=== PATIENT | female | born 1995 | race Caucasian/White ===

== ENCOUNTER 2020-05-30 08:19 | Inpatient (IN) | payer BC, SELFPAY ==
--- NOTE | 2020-05-30 08:38 | ED_ITS ---
HPI - Psych General Chief Complaint: Psychiatric Symptoms Stated Complaint: crisis Time Seen by Provider: 05/30/20 10:11 Source: patient Mode of arrival: ambulatory Limitations: no limitations History of Present Illness HPI Narrative: patient presents to the ED because she is afraid to be alone. Patient states she feels like she is not in reality. Patient states having auditory and visual hallucinations. Patient states earlier she was afraid she might hurt others and herself because he is unaware to separate what is real. Patient states presently she denies any suicidal homicidal ideation. Patient states she does not believe her medication is working. Patient denies any physical complaints. Patient states she is not eating or sleeping and feels depressed. Related Data Home Medications Medication Instructions Recorded Confirmed dextroamphetamine-amphetamine 1 cap PO QAM 05/30/20 05/30/20 lithium carbonate 1 tab PO BID 05/30/20 05/30/20 norgestimate-ethinyl estradiol 1 tab PO DAILY 05/30/20 05/30/20 [Estarylla] Allergies Allergy/AdvReac Type Severity Reaction Status Date / Time No Known Allergies Allergy Unverified 04/19/20 19:23 [No Known Allergies*] Review of Systems Review of Systems: Yes all other systems are reviewed and are negative Constitutional: Constitutional: Reports as per HPI and Reports no additional constitutional complaints Eyes: Eyes: Reports as per HPI, Reports no additional eye complaints, Denies blind spots, Denies blurry vision, Denies exophthalmos, Denies change in vision, Denies decreased night vision, Denies eye discharge, Denies dry eyes, Denies floaters and Denies irritation ENT: Reports system reviewed and no additional complaints, except as documented, Reports as per HPI and Denies dysphagia Cardiovascular: Cardiovascular: Reports as per HPI, Reports no additional cardiovascular complaints, Denies chest pain, Denies chest pain at rest, Denies chest pain with activity, Denies Epigastric Pain, Denies dyspnea on exertion, Denies orthopnea and Denies paroxysmal nocturnal dyspnea Respiratory: Respiratory: Reports as per HPI, Reports no additional respiratory complaints, Denies no additional respiratory complaints, Denies change in phlegm color, Denies chest congestion, Denies cough, Denies hemoptysis, Denies excessive phlegm production, Denies pain on inspiration, Denies pain with cough and Denies dyspnea on exertion Gastrointestinal: Gastrointestinal: Reports as per HPI, Reports no additional gastrointestinal complaints, Denies abdominal pain, Denies belching, Denies melena, Denies bloating, Denies hematochezia, Denies tenesmus, Denies change in stool character, Denies coffee ground emesis, Denies constipation, Denies GI cramping, Denies dysphagia, Denies early satiety, Denies dyspepsia, Denies heartburn, Denies fecal incontinence, Denies diarrhea and Denies hematemesis Genitourinary: Genitourinary: Reports no additional female genitourinary complaints, Reports as per HPI, Denies abnormal menses, Denies abnormal vaginal bleeding, Denies dysmenorrhea, Denies dysuria, Denies pelvic pain, Denies urinary incontinence, Denies urinary hesitancy and Denies urinary urgency Musculoskeletal: Musculoskeletal: Reports no additional musculoskeletal complaints Neurologic: Reports system reviewed and no additional complaints, except as documented and Reports as per HPI Psychiatric: Psychiatric: Reports abnormal sleep pattern, Reports anxiety, Reports anhedonia, Reports paranoia, Reports homicidal ideation and Reports suicidal ideation [facility] Past Medical History Medical History (Updated 05/30/20 @ 17:50 by ANIA Rivera) No known health problems Social History Social History Alcohol intake: current Alcohol intake frequency: other Alcohol type: beer Smoking Status: Current every day smoker Smoked in Last 30 Days: Yes Use of substances other than those prescribed or required for medical reasons: Yes Substance Use Type: Marijuana Substance Use Frequency: Daily Last Used Substance: Hours (ago) Any prior treatment program specific to substance use: No Advance Directives: Yes Advance Directives Information Provided: No Advance Directives on File: No Physical Exam Vital Signs: Vital Signs: Vital Signs Temp Pulse Resp BP Pulse Ox 05/30/20 16:27 98.1 F 98 20 145/95 H 100 05/30/20 08:42 97.1 F 80 19 156/99 H 99 05/30/20 08:39 97.1 F 80 19 156/99 H 99 Body Mass Index 29.0 Const: General: cooperative, healthy appearing, comfortable, no acute di stress, well developed and anxious Orientation/consciousness: patient los ented x3 HENMT: Head: Yes normal to inspection Ears: hearing grossly normal bilaterally, external ears normal and TM's normal bilaterally General nose exam: Normal external nose present Eyes: General: appearance normal, both eyes and all related structures Neck: Neck: Yes normal visual inspection, Yes full ROM, Yes no lymphadenopathy and Yes no meningeal signs Chest: Chest palpation & inspection: normal inspection of the chest, normal palpation of entire chest wall and no localized rib tenderness Resp: Effort & Inspection: normal respiratory effort, able to speak in complete sentences, normal respiratory pattern, no audible wheezes, no cough, respiratory effort not decreased, no grunting, not labored, no nasal flaring, no paradoxical thoraco-abdom movements, no pursed lip breathing, no respiratory distress, no retractions, no segmental paradox chest wall movement, no stridor, not tachypneic, no tracheal deviation and no tripod positioning Auscultation: clear to auscultation bilaterally Percussion: percussion normal Cardio: Jugular venous distension: no JVD Heart sounds: S1 normal heart sound present and S2 normal heart sound present GI: Inspection: Yes normal to inspection, No abdominal wall ecchymosis, No Abdominal wall edema and No distended Percussion: Yes normal to percussion Auscultation: normal bowel sounds : General: No CVA tenderness and Yes no CVA tenderness Back/Spine/Pelvis: Back: no CVA tenderness, No CVA tenderness and No back tenderness Skin: General skin exam: no rashes or lesions noted Neuro: General: patient oriented x3, gait normal, no meningeal signs and CN's II-XI intact bilaterally Cranial nerves: Yes CN's II-XII intact bilaterally Extrem: General: Yes normal to inspection and Yes full ROM Psych: Other: Patient seems depressed, and anxious. . Patient presently is alert oriented x3. Patient presently denies any suicidal ideation. Patient admits to having intermittent hallucinations. Appearance: grossly normal and well kempt Thought content: Hallucination(s) present Course Course Course Narrative: Patient will have basic labs and a psych evaluation. Reevaluation(s) Reevaluation #1: patient labs are normal. Patient seen by care team recommends admission for patient. Patient presently is a bed search. Time: 13:20 Reevaluation #2: patient is going to . Time: 17:49 MDM - Psych MDM Narrative Medical decision making narrative: Manic. Bipolar Restraints Face to Face Assessment: Face to Face Assessment: Current Situation: After assessment of the patient, a review of the pertinent medical record and a discussion with nursing staff, I feel the patient requires a restrain intervention. Reaction To: [] Medical Condition: [] Behavioral State: [] Continued Need: [] Lab Data Result diagrams: 05/30/20 09:17 05/30/20 09:17 Labs: Lab Results 05/30/20 05/30/20 05/30/20 Range/Units 09:17 09:17 09:17 WBC 7.0 (4.8-10.8) X10*3/uL RBC 3.92 L (4.20-5.50) X10*6/uL Hgb 11.5 L (12.0-16.0) g/dl Hct 36.2 L (37-47) % MCV 92.3 (80-98) fL MCH 29.3 (27.0-33.0) pg MCHC 31.8 (31.0-35.0) g/dl RDW 13.0 (11.0-16.0) % Plt Count 218 (160-400) X10*3/uL MPV 10.6 (9.4-12.3) fL Immature Gran % (Auto) 0.4 (0.0-0.4) % Neut % (Auto) 67.8 (45-73) % Lymph % (Auto) 21.8 (20-40) % [place] % (Auto) 7.3 (2-11) % Eos % (Auto) 2.3 (0-4) % Baso % (Auto) 0.4 (0-2) % Lymph # (Auto) 1.5 (1.2-4.9) X10*3/uL [place] # (Auto) 0.5 (0.1-1.2) X10*3/uL Eos # (Auto) 0.2 (0.0-0.4) X10*3/uL Baso # (Auto) 0.0 (0.0-0.2) X10*3/uL Abs Immat Gran (auto) 0.03 (0.00-0.03) X10*3/uL Absolute Neuts (auto) 4.8 (2.0-8.3) X10*3/uL Absolute Nucleated RBC 0.000 (0.0-0.012) X10*3/uL Nucleated RBC % (auto) 0.0 (0.0-0.2) /100WBC Sodium 139 (135-145) mmol/L Potassium 4.3 (3.3-5.1) mmol/l Chloride 103 (96-108) mmol/L Carbon Dioxide 29 (22-29) mmol/L Anion Gap 11 L (12-20) BUN 18 H (9-16) mg/dL Creatinine 0.81 (0.5-1.4) mg/dL Estim Creat Clear Calc 115.3 Estimated GFR > 60 Random Glucose 111 (60-115) mg/dL Calcium 9.2 (8.4-10.2) mg/dL Total Bilirubin 0.8 (0.0-1.0) mg/dL Direct Bilirubin 0.3 (0.0-0.5) mg/dL AST 19 (5-31) U/L ALT 15 (0-31) U/L Alkaline Phosphatase 66 (39-117) U/L Total Protein 7.1 (6.5-8.0) g/dL Albumin 4.1 (3.5-5.0) g/dL Urine Color Urine Appearance Urine pH (5.0-8.0) Ur Specific [place] (1.005-1.025) Urine Protein (NEG-TRACE) MG/DL Urine Glucose (UA) (NEG) MG/DL Urine Ketones (NEG) MG/DL Urine Blood (NEG) Urine Nitrite (NEG) Ur Leukocyte Esterase (NEG) Urine RBC (0) /HPF Urine WBC (0-4) /HPF Ur Squamous Epith Cells /LPF Urine Bacteria /LPF Urine Test (NEGATIVE) Urine Opiates Screen (Not Detect) Ur Barbiturates Screen (Not Detect) Ur Phencyclidine Scrn (Not Detect) Ur Amphetamines Screen (Not Detect) U Benzodiazepines Scrn (Not Detect) [place] (0.60-1.20) mmol/L Urine Cocaine Screen (Not Detect) U Marijuana (THC) Screen (Not Detect) Ethyl Alcohol < 10 mg/dL Coronavirus (PCR) (Negative) COVID-19 PCR 05/30/20 05/30/20 05/30/20 Range/Units 09:17 09:17 09:33 WBC (4.8-10.8) X10*3/uL RBC (4.20-5.50) X10*6/uL Hgb (12.0-16.0) g/dl Hct (37-47) % MCV (80-98) fL MCH (27.0-33.0) pg MCHC (31.0-35.0) g/dl RDW (11.0-16.0) % Plt Count (160-400) X10*3/uL MPV (9.4-12.3) fL Immature Gran % (Auto) (0.0-0.4) % Neut % (Auto) (45-73) % Lymph % (Auto) (20-40) % [place] % (Auto) (2-11) % Eos % (Auto) (0-4) % Baso % (Auto) (0-2) % Lymph # (Auto) (1.2-4.9) X10*3/uL [place] # (Auto) (0.1-1.2) X10*3/uL Eos # (Auto) (0.0-0.4) X10*3/uL Baso # (Auto) (0.0-0.2) X10*3/uL Abs Immat Gran (auto) (0.00-0.03) X10*3/uL Absolute Neuts (auto) (2.0-8.3) X10*3/uL Absolute Nucleated RBC (0.0-0.012) X10*3/uL Nucleated RBC % (auto) (0.0-0.2) /100WBC Sodium (135-145) mmol/L Potassium (3.3-5.1) mmol/l Chloride (96-108) mmol/L Carbon Dioxide (22-29) mmol/L Anion Gap (12-20) BUN (9-16) mg/dL Creatinine (0.5-1.4) mg/dL Estim Creat Clear Calc Estimated GFR Random Glucose (60-115) mg/dL Calcium (8.4-10.2) mg/dL Total Bilirubin Cancelled (0.0-1.0) mg/dL Direct Bilirubin Cancelled (0.0-0.5) mg/dL AST Cancelled (5-31) U/L ALT Cancelled (0-31) U/L Alkaline Phosphatase Cancelled (39-117) U/L Total Protein Cancelled (6.5-8.0) g/dL Albumin Cancelled (3.5-5.0) g/dL Urine Color Urine Appearance Urine pH (5.0-8.0) Ur Specific [place] (1.005-1.025) Urine Protein (NEG-TRACE) MG/DL Urine Glucose (UA) (NEG) MG/DL Urine Ketones (NEG) MG/DL Urine Blood (NEG) Urine Nitrite (NEG) Ur Leukocyte Esterase (NEG) Urine RBC (0) /HPF Urine WBC (0-4) /HPF Ur Squamous Epith Cells /LPF Urine Bacteria /LPF Urine Test (NEGATIVE) Urine Opiates Screen Not Detected (Not Detect) Ur Barbiturates Screen Not Detected (Not Detect) Ur Phencyclidine Scrn Not Detected (Not Detect) Ur Amphetamines Screen Not Detected (Not Detect) U Benzodiazepines Scrn Not Detected (Not Detect) [place] 0.32 L (0.60-1.20) mmol/L Urine Cocaine Screen Not Detected (Not Detect) U Marijuana (THC) Screen Not Detected (Not Detect) Ethyl Alcohol mg/dL Coronavirus (PCR) (Negative) COVID-19 PCR 05/30/20 05/30/20 Range/Units 09:33 14:55 WBC (4.8-10.8) X10*3/uL RBC (4.20-5.50) X10*6/uL Hgb (12.0-16.0) g/dl Hct (37-47) % MCV (80-98) fL MCH (27.0-33.0) pg MCHC (31.0-35.0) g/dl RDW (11.0-16.0) % Plt Count (160-400) X10*3/uL MPV (9.4-12.3) fL Immature Gran % (Auto) (0.0-0.4) % Neut % (Auto) (45-73) % Lymph % (Auto) (20-40) % [place] % (Auto) (2-11) % Eos % (Auto) (0-4) % Baso % (Auto) (0-2) % Lymph # (Auto) (1.2-4.9) X10*3/uL [place] # (Auto) (0.1-1.2) X10*3/uL Eos # (Auto) (0.0-0.4) X10*3/uL Baso # (Auto) (0.0-0.2) X10*3/uL Abs Immat Gran (auto) (0.00-0.03) X10*3/uL Absolute Neuts (auto) (2.0-8.3) X10*3/uL Absolute Nucleated RBC (0.0-0.012) X10*3/uL Nucleated RBC % (auto) (0.0-0.2) /100WBC Sodium (135-145) mmol/L Potassium (3.3-5.1) mmol/l Chloride (96-108) mmol/L Carbon Dioxide (22-29) mmol/L Anion Gap (12-20) BUN (9-16) mg/dL Creatinine (0.5-1.4) mg/dL Estim Creat Clear Calc Estimated GFR Random Glucose (60-115) mg/dL Calcium (8.4-10.2) mg/dL Total Bilirubin (0.0-1.0) mg/dL Direct Bilirubin (0.0-0.5) mg/dL AST (5-31) U/L ALT (0-31) U/L Alkaline Phosphatase (39-117) U/L Total Protein (6.5-8.0) g/dL Albumin (3.5-5.0) g/dL Urine Color YELLOW Urine Appearance HAZY Urine pH 6.0 (5.0-8.0) Ur Specific [place] 1.015 (1.005-1.025) Urine Protein NEG (NEG-TRACE) MG/DL Urine Glucose (UA) NEG (NEG) MG/DL Urine Ketones NEG (NEG) MG/DL Urine Blood TRACE (NEG) Urine Nitrite NEG (NEG) Ur Leukocyte Esterase NEG (NEG) Urine RBC 0-2 (0) /HPF Urine WBC 1-4 (0-4) /HPF Ur Squamous Epith Cells 2+ /LPF Urine Bacteria 1+ /LPF Urine Test NEGATIVE (NEGATIVE) Urine Opiates Screen (Not Detect) Ur Barbiturates Screen (Not Detect) Ur Phencyclidine Scrn (Not Detect) Ur Amphetamines Screen (Not Detect) U Benzodiazepines Scrn (Not Detect) [place] (0.60-1.20) mmol/L Urine Cocaine Screen (Not Detect) U Marijuana (THC) Screen (Not Detect) Ethyl Alcohol mg/dL Coronavirus (PCR) POSITIVE A (Negative) COVID-19 PCR Cancelled Discharge Plan Discharge Clinical Impression: Bipolar disorder Patient Disposition: Admitted As Inpatient
[2020-05-30 08:39] VITALS: BP 156/99; PULSE 80; RESP 19; TEMP 36.2; O2SAT 99; BMI 29.0
[2020-05-30 08:42] VITALS: BP 156/99; PULSE 80; RESP 19; TEMP 36.2; O2SAT 99
[2020-05-30 09:31] LABS: MANUAL DIFF FLAG NO
[2020-05-30 09:36] LABS: Basophils Percent Auto 0.4 % (0-2); Eosinophils Absolute Auto 0.2 X10*3/uL (0.0-0.4); Eosinophils Percent Auto 2.3 % (0-4); Hematocrit 36.2 % (37-47); Hemoglobin 11.5 g/dl (12.0-16.0); Imm Gran Abs Auto 0.03 X10*3/uL (0.00-0.03); Imm Gran Pct Auto 0.4 % (0.0-0.4); Lymphocytes Absolute Auto 1.5 X10*3/uL (1.2-4.9); Lymphocytes Percent Auto 21.8 % (20-40); Mean Corpuscular HGB Conc 31.8 g/dl (31.0-35.0); Mean Corpuscular Hemoglobin 29.3 pg (27.0-33.0); Mean Corpuscular Volume 92.3 fL (80-98); Mean Platelet Volume 10.6 fL (9.4-12.3); Monocytes Absolute Auto 0.5 X10*3/uL (0.1-1.2); Monocytes Percent Auto 7.3 % (2-11); Neutrophils Absolute Auto 4.8 X10*3/uL (2.0-8.3); Neutrophils Percent Auto 67.8 % (45-73); Platelet Count 218 X10*3/uL (160-400); Red Blood Count 3.92 X10*6/uL (4.20-5.50)
[2020-05-30 09:47] LABS: Glucose Urine UA NEG (NEG); Leukocyte Esterase Urine NEG (NEG); Nitrite Urine NEG (NEG); Specific Gravity - Urine 1.015 (1.005-1.025); Urine Blood TRACE (NEG); Urine Ketones NEG (NEG); Urine Protein NEG (NEG-TRACE)
[2020-05-30 09:48] LABS: Appearance Urine HAZY; Color Urine YELLOW
[2020-05-30 09:50] LABS: UPreg QC Valid YES; Urine Pregnancy NEGATIVE (NEGATIVE)
[2020-05-30 09:56] LABS: Lithium 0.32 mmol/L (0.60-1.20)
[2020-05-30 09:57] LABS: Bacteria Urine 1+ /LPF; RBC Urine 0-2 /HPF (0); Squamous Epithelial Cell Urine 2+ /LPF
[2020-05-30 10:00] LABS: Ethanol < 10 mg/dL
[2020-05-30 10:08] LABS: Alanine Aminotransferase 15 U/L (0-31); Albumin Level 4.1 g/dL (3.5-5.0); Alkaline Phosphatase 66 U/L (39-117); Anion Gap 11 (12-20); Aspartate Amino Transferase 19 U/L (5-31); Bilirubin Direct 0.3 mg/dL (0.0-0.5); Bilirubin Total 0.8 mg/dL (0.0-1.0); Blood Urea Nitrogen 18 mg/dL (9-16); Calcium 9.2 mg/dL (8.4-10.2); Carbon Dioxide 29 mmol/L (22-29); Chloride 103 mmol/L (96-108); Creatinine Clr Calc Pharmacy 115.3; Estimated Glomerular Filt Rate > 60; Glucose Random 111 mg/dL (60-115); Potassium 4.3 mmol/l (3.3-5.1); Sodium 139 mmol/L (135-145); Total Protein 7.1 g/dL (6.5-8.0)
[2020-05-30 10:19] LABS: Amphetamine Screen Urine Not Detected (Not Detect); Barbiturates, Urine Not Detected (Not Detect); Benzodiazepines Screen Urine Not Detected (Not Detect); Cannabinoid Screen Urine Not Detected (Not Detect); Cocaine Screen Urine Not Detected (Not Detect); Opiate Screen Urine Not Detected (Not Detect); Phencyclidine Screen Urine Not Detected (Not Detect)
--- NOTE | 2020-05-30 11:18 | MHC.CARE ---
CARE saw pt shortly upon arrival for crisis assessment. Pt is now a voluntary bedsearch. Pt is acutely aware and distressed by her own sxs asking to be medicated. ED provider and pod aware of this and working to coordinate medication for pt.
[2020-05-30] MEDS: QUEtiapine Fumarate 50 MG TABLET PO (11:58)
--- NOTE | 2020-05-30 13:19 | PC.NURSE ---
Pt currently eating lunch, quietly speaking with a peer. Pt encouraged to rest after lunch. PT calm and cooperative.
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
[2020-05-30 16:03] LABS: SARS COV2 PCR INHOUSE POSITIVE (Negative)
[2020-05-30 16:27] VITALS: BP 145/95; PULSE 98; RESP 20; TEMP 36.7; O2SAT 100
[2020-05-30] MEDS: Lithium Carbonate ER 300 MG TABLET.ER PO (20:54)
[2020-05-30] MEDS: hydrOXYzine HCL 25 MG TABLET PO (20:54)
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
[2020-05-31] MEDS: QUEtiapine Fumarate 50 MG TABLET PO ×2 (03:20→08:44)
[2020-05-31 06:20] VITALS: BP 156/92; PULSE 102; RESP 18; TEMP 37.1
[2020-05-31] MEDS: Lithium Carbonate ER 300 MG TABLET.ER PO ×2 (08:44→21:40)
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
[2020-05-31] MEDS: QUEtiapine Fumarate 50 MG TABLET 100 MG PO (11:14)
[2020-05-31] MEDS: LORazepam 1 MG TABLET 2 MG PO (14:14)
[2020-05-31 17:40] VITALS: BP 142/65; PULSE 83; TEMP 36.2
[2020-05-31 17:41] VITALS: BP 142/65; PULSE 83; TEMP 36.2
[2020-05-31] MEDS: QUEtiapine Fumarate 300 MG TABLET PO (21:40)
[2020-05-31] MEDS: hydrOXYzine HCL 25 MG TABLET PO (21:41)
[2020-06-01] MEDS: QUEtiapine Fumarate 50 MG TABLET 100 MG PO (08:48)
[2020-06-01] MEDS: Lithium Carbonate ER 300 MG TABLET.ER PO (08:48)
--- NOTE | 2020-06-01 09:25 | P.PNPSI_ITS ---
Subjective Subjective Date of Service: 06/01/20 Reason For Visit: crisis/MOOD Subjective Notes: Conditional Voluntary Interim History: Roberta has been very agitated. She has been singing at the top of her lungs, intrusive, staying close to the desk. She pushed an RN. She has been sexually provocative with peers. As a result of this behavior, and risks to others chemical restraint is needed Medication Compliance: Intermittent Side effects from medications: No Attending Groups: No Review of Systems Acute medical concerns: No Medical Review of Systems: unchanged Review of Systems Reports system reviewed and no additional complaints, except as documented and Reports as per HPI Mental Status Exam Mental Status Exam Patient Appearance: Disheveled Level of Consciousness: Restless and Inappropriate Patient Behavior: Talkative, Hyperactive, Aggressive, Restless, Belligerent, Wandering, Invasion - Personal Space and Impulsive Mood Description: Suspicious, Angry and Apprehensive Affect Description: Suspicious, Angry and Apprehensive Ability to Follow Directions: Poor Speech Pattern: Rambling Memory Description: Remote Impaired Hallucinations: Auditory and Visual Delusions: Being Controlled, Paranoid Ideation and Present Thought Process: Disoriented and Incoherent Thought Content: positive for Disoriented, positive for Loose Associations, negative for Suicidal Ideation and negative for Homicidal Ideation Abnormal Motor Activity Signs and Symptoms: Aggression, Agitation and Restlessness Judgement: Poor Diagnostics Vital Signs (24Hr): Vital Signs - 24 hr 05/31/20 17:40 05/31/20 17:41 Temperature 97.2 F 97.2 F Pulse Rate 83 83 Blood Pressure 142/65 H 142/65 H Body Mass Index 29.0 Labs Results: 05/30/20 09:17 05/30/20 09:17 Labs: Laboratory Results - last 48 hr 05/30/20 05/30/20 05/30/20 09:17 09:17 09:17 WBC 7.0 RBC 3.92 L Hgb 11.5 L Hct 36.2 L MCV 92.3 MCH 29.3 MCHC 31.8 RDW 13.0 Plt Count 218 MPV 10.6 Immature Gran % (Auto) 0.4 Neut % (Auto) 67.8 Lymph % (Auto) 21.8 [place] % (Auto) 7.3 Eos % (Auto) 2.3 Baso % (Auto) 0.4 Lymph # (Auto) 1.5 [place] # (Auto) 0.5 Eos # (Auto) 0.2 Baso # (Auto) 0.0 Abs Immat Gran (auto) 0.03 Absolute Neuts (auto) 4.8 Absolute Nucleated RBC 0.000 Nucleated RBC % (auto) 0.0 Sodium 139 Potassium 4.3 Chloride 103 Carbon Dioxide 29 Anion Gap 11 L BUN 18 H Creatinine 0.81 Estim Creat Clear Calc 115.3 Estimated GFR > 60 Random Glucose 111 Calcium 9.2 Total Bilirubin 0.8 Direct Bilirubin 0.3 AST 19 ALT 15 Alkaline Phosphatase 66 Total Protein 7.1 Albumin 4.1 Urine Color Urine Appearance Urine pH Ur Specific [place] Urine Protein Urine Glucose (UA) Urine Ketones Urine Blood Urine Nitrite Ur Leukocyte Esterase Urine RBC Urine WBC Ur Squamous Epith Cells Urine Bacteria Urine Test Urine Opiates Screen Ur Barbiturates Screen Ur Phencyclidine Scrn Ur Amphetamines Screen U Benzodiazepines Scrn [place] Urine Cocaine Screen U Marijuana (THC) Screen Ethyl Alcohol < 10 Coronavirus (PCR) COVID-19 PCR 05/30/20 05/30/20 05/30/20 09:17 09:17 09:33 WBC RBC Hgb Hct MCV MCH MCHC RDW Plt Count MPV Immature Gran % (Auto) Neut % (Auto) Lymph % (Auto) [place] % (Auto) Eos % (Auto) Baso % (Auto) Lymph # (Auto) [place] # (Auto) Eos # (Auto) Baso # (Auto) Abs Immat Gran (auto) Absolute Neuts (auto) Absolute Nucleated RBC Nucleated RBC % (auto) Sodium Potassium Chloride Carbon Dioxide Anion Gap BUN Creatinine Estim Creat Clear Calc Estimated GFR Random Glucose Calcium Total Bilirubin Cancelled Direct Bilirubin Cancelled AST Cancelled ALT Cancelled Alkaline Phosphatase Cancelled Total Protein Cancelled Albumin Cancelled Urine Color Urine Appearance Urine pH Ur Specific [place] Urine Protein Urine Glucose (UA) Urine Ketones Urine Blood Urine Nitrite Ur Leukocyte Esterase Urine RBC Urine WBC Ur Squamous Epith Cells Urine Bacteria Urine Test Urine Opiates Screen Not Detected Ur Barbiturates Screen Not Detected Ur Phencyclidine Scrn Not Detected Ur Amphetamines Screen Not Detected U Benzodiazepines Scrn Not Detected [place] 0.32 L Urine Cocaine Screen Not Detected U Marijuana (THC) Screen Not Detected Ethyl Alcohol Coronavirus (PCR) COVID-19 PCR 05/30/20 05/30/20 09:33 14:55 WBC RBC Hgb Hct MCV MCH MCHC RDW Plt Count MPV Immature Gran % (Auto) Neut % (Auto) Lymph % (Auto) [place] % (Auto) Eos % (Auto) Baso % (Auto) Lymph # (Auto) [place] # (Auto) Eos # (Auto) Baso # (Auto) Abs Immat Gran (auto) Absolute Neuts (auto) Absolute Nucleated RBC Nucleated RBC % (auto) Sodium Potassium Chloride Carbon Dioxide Anion Gap BUN Creatinine Estim Creat Clear Calc Estimated GFR Random Glucose Calcium Total Bilirubin Direct Bilirubin AST ALT Alkaline Phosphatase Total Protein Albumin Urine Color YELLOW Urine Appearance HAZY Urine pH 6.0 Ur Specific [place] 1.015 Urine Protein NEG Urine Glucose (UA) NEG Urine Ketones NEG Urine Blood TRACE Urine Nitrite NEG Ur Leukocyte Esterase NEG Urine RBC 0-2 Urine WBC 1-4 Ur Squamous Epith Cells 2+ Urine Bacteria 1+ Urine Test NEGATIVE Urine Opiates Screen Ur Barbiturates Screen Ur Phencyclidine Scrn Ur Amphetamines Screen U Benzodiazepines Scrn [place] Urine Cocaine Screen U Marijuana (THC) Screen Ethyl Alcohol Coronavirus (PCR) POSITIVE A COVID-19 PCR Cancelled Medications Medications Current Medications Generic Name Dose Route Start Last Admin Trade Name Freq PRN Reason Stop Dose Admin Acetaminophen 650 mg 05/30/20 19:13 Acetaminophen 325 Mg Tablet PO Q6H PRN Headache/Pain Mild Scale (1-3) Al Hydroxide/Mg Hydroxide 30 ml 05/30/20 19:13 Magnesium Hydrox/Alum Hydrox 30 Ml Oral.Susp PO Q6H PRN Heartburn/Nausea Hydroxyzine HCl 25 mg 05/30/20 19:13 05/31/20 21:41 Hydroxyzine Hcl 25 Mg Tablet PO 25 mg BEDTIME PRN Administration Anxiety [place] Carbonate 300 mg 05/30/20 21:00 06/01/20 08:48 [place] Carbonate Er 300 Mg Tablet.Er PO 300 mg BID DONNA Administration Magnesium Hydroxide 30 ml 05/30/20 19:13 Milk Of Magnesia 30 Ml Oral.Susp PO DAILY PRN Constipation Non-Formulary Medication 0 each 05/31/20 09:00 Patient Own Medication PO DAILY DONNA Quetiapine Fumarate 100 mg 05/31/20 09:43 06/01/20 08:48 Quetiapine Fumarate 50 Mg Tablet PO 100 mg Q4H PRN Administration anxiety/restlessness Quetiapine Fumarate 300 mg 05/31/20 21:00 05/31/20 21:40 Quetiapine Fumarate 300 Mg Tablet PO 300 mg BEDTIME DONNA Administration Allergies Allergies Allergy/AdvReac Type Severity Reaction Status Date / Time No Known Allergies Allergy Unverified 04/19/20 19:23 [No Known Allergies*] Assessment & Plan Assessment & Plan (1) Bipolar disorder: Qualifiers: Active/Remission status: currently active Current bipolar episode type: manic Current episode severity: severe Psychotic features: with psychotic features Qualified Code(s): F31.2 - Bipolar disorder, current episode manic severe with psychotic features Status: Acute Code(s): F31.9 - Bipolar disorder, unspecified Assessment and Plan: Continue Li and seroquel Haldol 5mg, Ativan 2mg, Cogentin 1mg im now. Greater than 50% of the session was spent on counseling and/or coordination of care Patient educated on: diagnosis and medication risk/benefits Informed Consent: does not understand Reason for contiued inpatient stay Substantial Risk for: harm to self, harm to others, inability to function and rapid decompensation
[2020-06-01] MEDS: LORazepam 2 MG/ML VIAL IM (13:46)
[2020-06-01] MEDS: Benztropine Mesylate 2 MG/2 ML VIAL 1 MG IM (13:47)
[2020-06-01] MEDS: Haloperidol Lactate 5 MG/ML VIAL IM (13:47)
[2020-06-02 06:00] VITALS: BP 129/76; PULSE 77; RESP 16; TEMP 36.3
[2020-06-02] MEDS: QUEtiapine Fumarate 50 MG TABLET 100 MG PO ×3 (08:58→19:26)
[2020-06-02] MEDS: Lithium Carbonate ER 300 MG TABLET.ER PO ×2 (08:58→20:19)
--- NOTE | 2020-06-02 10:57 | P.PNPSI_ITS ---
Subjective Subjective Date of Service: 06/02/20 Reason For Visit: crisis/MOOD Subjective Notes: Conditional Voluntary Interim History: Patient had visit with mom said went well, eating, taking medications today - less labile - still on close observation Medication Compliance: Yes Side effects from medications: No Attending Groups: No Review of Systems Acute medical concerns: No Medical Review of Systems: unchanged Review of Systems Review of Systems Yes all other systems are reviewed and are negative Constitutional: Reports no additional constitutional complaints Comments: no xs urination or thirst Reports system reviewed and no additional complaints, except as documented and Reports as per HPI Comments: no tremor Mental Status Exam Mental Status Exam Narrative: casually dressed kempt eating lunch intense eye contact than gave prayerful bow at end of conversation could not sustain very long conversation Patient Appearance: Well Grooomed and Appropriate Patient Orientation: Person, Place and Time Level of Consciousness: Awake and Appropriate Patient Behavior: Appropriate, Posturing and Good Eye Contact Mood Description: Euphoric and Expansive Affect Description: Labile and Elated Patient Cognition Impaired: No Ability to Follow Directions: Fair Speech Pattern: Clear Hallucinations: None Thought Process: Distracted Thought Content: positive for Flight of Ideas Depressive Symptoms: Insomnia Abnormal Motor Activity Signs and Symptoms: Restlessness Judgement: Poor Diagnostics Vital Signs (24Hr): Vital Signs - 24 hr 06/02/20 06:00 Temperature 97.3 F Pulse Rate 77 Respiratory Rate 16 Blood Pressure 129/76 Body Mass Index 29.0 Labs Results: 05/30/20 09:17 05/30/20 09:17 Medications Medications Current Medications Generic Name Dose Route Start Last Admin Trade Name Freq PRN Reason Stop Dose Admin Acetaminophen 650 mg 05/30/20 19:13 Acetaminophen 325 Mg Tablet PO Q6H PRN Headache/Pain Mild Scale (1-3) Al Hydroxide/Mg Hydroxide 30 ml 05/30/20 19:13 Magnesium Hydrox/Alum Hydrox 30 Ml Oral.Susp PO Q6H PRN Heartburn/Nausea Hydroxyzine HCl 25 mg 05/30/20 19:13 05/31/20 21:41 Hydroxyzine Hcl 25 Mg Tablet PO 25 mg BEDTIME PRN Administration Anxiety [place] Carbonate 300 mg 05/30/20 21:00 06/02/20 08:58 [place] Carbonate Er 300 Mg Tablet.Er PO 300 mg BID DONNA Administration Magnesium Hydroxide 30 ml 05/30/20 19:13 Milk Of Magnesia 30 Ml Oral.Susp PO DAILY PRN Constipation Non-Formulary Medication 0 each 05/31/20 09:00 Patient Own Medication PO DAILY DONNA Quetiapine Fumarate 100 mg 05/31/20 09:43 06/02/20 08:58 Quetiapine Fumarate 50 Mg Tablet PO 100 mg Q4H PRN Administration anxiety/restlessness Quetiapine Fumarate 300 mg 05/31/20 21:00 06/01/20 23:44 Quetiapine Fumarate 300 Mg Tablet PO Not Given BEDTIME DONNA Allergies Allergies Allergy/AdvReac Type Severity Reaction Status Date / Time No Known Allergies Allergy Unverified 04/19/20 19:23 [No Known Allergies*] Assessment & Plan Assessment & Plan (1) Bipolar disorder: Qualifiers: Active/Remission status: currently active Current bipolar episode type: manic Current episode severity: severe Psychotic features: with psychotic features Qualified Code(s): F31.2 - Bipolar disorder, current episode manic severe with psychotic features Status: Acute Code(s): F31.9 - Bipolar disorder, unspecified Assessment and Plan: started on lithium and seroquel - seems to be helping already- Greater than 50% of the session was spent on counseling and/or coordination of care
[2020-06-02 18:00] VITALS: BP 147/87; PULSE 94; TEMP 36.9
[2020-06-02] MEDS: QUEtiapine Fumarate 300 MG TABLET PO (20:19)
[2020-06-03] MEDS: QUEtiapine Fumarate 50 MG TABLET 100 MG PO ×2 (00:47→06:38)
[2020-06-03 06:00] VITALS: BP 131/81; PULSE 101; RESP 18; TEMP 36.2; O2SAT 100
[2020-06-03] MEDS: Lithium Carbonate ER 300 MG TABLET.ER PO (08:46)
[2020-06-03] MEDS: QUEtiapine Fumarate 50 MG TABLET 150 MG PO (12:11)
[2020-06-03] MEDS: LORazepam 1 MG TABLET PO (13:04)
[2020-06-03] MEDS: Benztropine Mesylate 1 MG TABLET PO (13:04)
[2020-06-03] MEDS: HaloperidoL 5 MG TABLET PO (13:04)
--- NOTE | 2020-06-03 15:05 | HO.PSYCHPN ---
Subjective Subjective Date of Service: 06/03/20 Reason For Visit: psychosis Subjective Notes: Conditional Voluntary Interim History: Patient taking medications, inc psychosis this afternoon after we met but even while we were meeting pt was interpreting every look and every movement by provider as a potential threat to her Medication Compliance: Yes Side effects from medications: No Attending Groups: No Review of Systems Reports as per HPI Diagnostics Vital Signs (24Hr): Vital Signs - 24 hr 06/02/20 18:00 06/03/20 06:00 Temperature 98.4 F 97.2 F Pulse Rate 94 101 H Respiratory Rate 18 Blood Pressure 147/87 H 131/81 Pulse Oximetry 100 Body Mass Index 29.0 Labs Results: 05/30/20 09:17 05/30/20 09:17 Medications Medications Current Medications Generic Name Dose Route Start Last Admin Trade Name Freq PRN Reason Stop Dose Admin Acetaminophen 650 mg 05/30/20 19:13 Acetaminophen 325 Mg Tablet PO Q6H PRN Headache/Pain Mild Scale (1-3) Al Hydroxide/Mg Hydroxide 30 ml 05/30/20 19:13 Magnesium Hydrox/Alum Hydrox 30 Ml Oral.Susp PO Q6H PRN Heartburn/Nausea Benztropine Mesylate 1 mg 06/03/20 12:51 06/03/20 13:04 Benztropine Mesylate 1 Mg Tablet PO 1 mg TID PRN Administration Extrapyramidal Effects Haloperidol 5 mg 06/03/20 12:51 06/03/20 13:04 Haloperidol 5 Mg Tablet PO 5 mg Q6H PRN Administration Psychosis Hydroxyzine HCl 25 mg 05/30/20 19:13 05/31/20 21:41 Hydroxyzine Hcl 25 Mg Tablet PO 25 mg BEDTIME PRN Administration Anxiety [place] Carbonate 450 mg 06/03/20 21:00 [place] Carbonate Er 450 Mg Tablet.Er PO BID DONNA Lorazepam 1 mg 06/03/20 12:51 06/03/20 13:04 Lorazepam 1 Mg Tablet PO 1 mg Q4H PRN Administration agitation Magnesium Hydroxide 30 ml 05/30/20 19:13 Milk Of Magnesia 30 Ml Oral.Susp PO DAILY PRN Constipation Quetiapine Fumarate 300 mg 05/31/20 21:00 06/02/20 20:19 Quetiapine Fumarate 300 Mg Tablet PO 300 mg BEDTIME DONNA Administration Quetiapine Fumarate 150 mg 06/03/20 11:51 06/03/20 12:11 Quetiapine Fumarate 50 Mg Tablet PO 150 mg Q4H PRN Administration anxiety/restlessness Allergies Allergies Allergy/AdvReac Type Severity Reaction Status Date / Time No Known Allergies Allergy Unverified 04/19/20 19:23 [No Known Allergies*] Assessment & Plan Assessment & Plan (1) Bipolar disorder: Qualifiers: Active/Remission status: currently active Current bipolar episode type: manic Current episode severity: severe Psychotic features: with psychotic features Qualified Code(s): F31.2 - Bipolar disorder, current episode manic severe with psychotic features Status: Acute Code(s): F31.9 - Bipolar disorder, unspecified Assessment and Plan: acutely psychotic inc prn seroquels added in prn haldol increased lithium dose requested ekg Greater than 50% of the session was spent on counseling and/or coordination of care
[2020-06-03 18:00] VITALS: BP 128/78; PULSE 96; TEMP 37.1
[2020-06-03] MEDS: Lithium Carbonate ER 450 MG TABLET.ER PO (20:51)
[2020-06-03] MEDS: QUEtiapine Fumarate 300 MG TABLET PO (20:52)
[2020-06-04] MEDS: Lithium Carbonate ER 450 MG TABLET.ER PO ×2 (08:21→20:13)
[2020-06-04] MEDS: QUEtiapine Fumarate 50 MG TABLET 150 MG PO ×2 (08:23→17:15)
[2020-06-04 08:40] VITALS: BP 126/76; PULSE 92; TEMP 36.8; O2SAT 96
--- NOTE | 2020-06-04 09:21 | P.PNPSI_ITS ---
Subjective Subjective Date of Service: 06/04/20 Reason For Visit: psychosis Subjective Notes: Conditional Voluntary Interim History: Roberta has been overall more calm and less intrusive. She reports that she is feeling better overall. Nursing note a dramatic improvement after she receives prn haldol. Will add this as a standing order. Li was increased Medication Compliance: Yes Side effects from medications: No Attending Groups: No Review of Systems Acute medical concerns: No Medical Review of Systems: unchanged Review of Systems Reports system reviewed and no additional complaints, except as documented and Reports as per [facility] Mental Status Exam Mental Status Exam Patient Appearance: Well Grooomed and Appropriate Patient Orientation: Person, Place and Time Level of Consciousness: Awake and Appropriate Patient Behavior: Appropriate, Guarded, Cooperative and Good Eye Contact Mood Description: Depressed, Fearful and Apprehensive Affect Description: Apprehensive Patient Cognition Impaired: No Ability to Follow Directions: Fair Speech Pattern: Clear and Mumbled Hallucinations: None Delusions: Paranoid Ideation and Grandiose Thought Process: Distracted Thought Content: positive for Flight of Ideas, positive for Preoccupation, positive for Thought Blocking, positive for Slowed Thinking, negative for Suicidal Ideation and negative for Homicidal Ideation Depressive Symptoms: Insomnia Abnormal Motor Activity Signs and Symptoms: Restlessness Judgement: Poor Diagnostics Vital Signs (24Hr): Vital Signs - 24 hr 06/03/20 18:00 Temperature 98.8 F Pulse Rate 96 Blood Pressure 128/78 Body Mass Index 29.0 Labs Results: 05/30/20 09:17 05/30/20 09:17 Medications Medications Current Medications Generic Name Dose Route Start Last Admin Trade Name Freq PRN Reason Stop Dose Admin Acetaminophen 650 mg 05/30/20 19:13 Acetaminophen 325 Mg Tablet PO Q6H PRN Headache/Pain Mild Scale (1-3) Al Hydroxide/Mg Hydroxide 30 ml 05/30/20 19:13 Magnesium Hydrox/Alum Hydrox 30 Ml Oral.Susp PO Q6H PRN Heartburn/Nausea Benztropine Mesylate 1 mg 06/03/20 12:51 06/03/20 13:04 Benztropine Mesylate 1 Mg Tablet PO 1 mg TID PRN Administration Extrapyramidal Effects Haloperidol 5 mg 06/03/20 12:51 06/03/20 13:04 Haloperidol 5 Mg Tablet PO 5 mg Q6H PRN Administration Psychosis Hydroxyzine HCl 25 mg 05/30/20 19:13 05/31/20 21:41 Hydroxyzine Hcl 25 Mg Tablet PO 25 mg BEDTIME PRN Administration Anxiety [place] Carbonate 450 mg 06/03/20 21:00 06/04/20 08:21 [place] Carbonate Er 450 Mg Tablet.Er PO 450 mg BID DONNA Administration Lorazepam 1 mg 06/03/20 12:51 06/03/20 13:04 Lorazepam 1 Mg Tablet PO 1 mg Q4H PRN Administration agitation Magnesium Hydroxide 30 ml 05/30/20 19:13 Milk Of Magnesia 30 Ml Oral.Susp PO DAILY PRN Constipation Quetiapine Fumarate 300 mg 05/31/20 21:00 06/03/20 20:52 Quetiapine Fumarate 300 Mg Tablet PO 300 mg BEDTIME DONNA Administration Quetiapine Fumarate 150 mg 06/03/20 11:51 06/04/20 08:23 Quetiapine Fumarate 50 Mg Tablet PO 150 mg Q4H PRN Administration anxiety/restlessness Allergies Allergies Allergy/AdvReac Type Severity Reaction Status Date / Time No Known Allergies Allergy Unverified 04/19/20 19:23 [No Known Allergies*] Assessment & Plan Assessment & Plan (1) Bipolar disorder: Qualifiers: Active/Remission status: currently active Current bipolar episode type: manic Current episode severity: severe Psychotic features: with psychotic features Qualified Code(s): F31.2 - Bipolar disorder, current episode manic severe with psychotic features Status: Acute Code(s): F31.9 - Bipolar disorder, unspecified Assessment and Plan: CT current plan Check lithium level Greater than 50% of the session was spent on counseling and/or coordination of care Patient educated on: diagnosis and medication risk/benefits Informed Consent: further education needed Reason for contiued inpatient stay Substantial Risk for: inability to function and rapid decompensation
[2020-06-04] MEDS: Benztropine Mesylate 1 MG TABLET PO ×2 (10:22→20:13)
[2020-06-04] MEDS: HaloperidoL 5 MG TABLET PO ×2 (10:22→20:13)
[2020-06-04 18:50] VITALS: BP 106/53; PULSE 73; TEMP 36.3
[2020-06-04] MEDS: QUEtiapine Fumarate 300 MG TABLET PO (20:12)
[2020-06-05 06:50] VITALS: BP 125/80; PULSE 118; RESP 16; TEMP 36; O2SAT 99
[2020-06-05 08:33] LABS: Lithium 0.74 mmol/L (0.60-1.20)
[2020-06-05] MEDS: Lithium Carbonate ER 450 MG TABLET.ER PO ×2 (08:39→20:35)
[2020-06-05] MEDS: Benztropine Mesylate 1 MG TABLET PO ×2 (08:39→20:35)
[2020-06-05] MEDS: HaloperidoL 5 MG TABLET PO ×2 (08:39→20:36)
--- NOTE | 2020-06-05 09:29 | P.PNPSI_ITS ---
Subjective Subjective Date of Service: 06/05/20 Reason For Visit: psychosis Subjective Notes: Conditional Voluntary Interim History: Roberta has been overall more calm and less intrusive. She reports that she is feeling better overall. She has found the haldol very helpful. Her mother also feels that she is improving and would like to take her home soon. She is visiting at 11 am and will give feedback. Aim is for DC 06/06 or 06/07 Medication Compliance: Yes Side effects from medications: No Attending Groups: Yes Review of Systems Acute medical concerns: No Medical Review of Systems: unchanged Review of Systems Reports system reviewed and no additional complaints, except as documented and Reports as per HPI Mental Status Exam Mental Status Exam Narrative: Much calmer and more present Patient Appearance: Well Grooomed and Appropriate Patient Orientation: Person, Place and Time Level of Consciousness: Awake and Appropriate Patient Behavior: Appropriate, Cooperative and Good Eye Contact Mood Description: Constricted and Apprehensive Affect Description: Constricted and Apprehensive Patient Cognition Impaired: No Ability to Follow Directions: Fair Speech Pattern: Clear and Spontaneous Speech Memory Description: Remote Impaired Hallucinations: None Delusions: Not Present Thought Process: Intact Thought Content: positive for Poverty of Content, positive for Thought Blocking, negative for Suicidal Ideation and negative for Homicidal Ideation Judgement: Poor Diagnostics Vital Signs (24Hr): Vital Signs - 24 hr 06/04/20 18:50 06/05/20 06:50 Temperature 97.4 F 96.8 F Pulse Rate 73 118 H Respiratory Rate 16 Blood Pressure 106/53 L 125/80 Pulse Oximetry 99 Body Mass Index 29.0 Labs Results: 05/30/20 09:17 05/30/20 09:17 Labs: Laboratory Results - last 48 hr 06/05/20 07:57 [place] 0.74 Medications Medications Current Medications Generic Name Dose Route Start Last Admin Trade Name Freq PRN Reason Stop Dose Admin Acetaminophen 650 mg 05/30/20 19:13 Acetaminophen 325 Mg Tablet PO Q6H PRN Headache/Pain Mild Scale (1-3) Al Hydroxide/Mg Hydroxide 30 ml 05/30/20 19:13 Magnesium Hydrox/Alum Hydrox 30 Ml Oral.Susp PO Q6H PRN Heartburn/Nausea Benztropine Mesylate 1 mg 06/03/20 12:51 06/03/20 13:04 Benztropine Mesylate 1 Mg Tablet PO 1 mg TID PRN Administration Extrapyramidal Effects Benztropine Mesylate 1 mg 06/04/20 09:30 06/05/20 08:39 Benztropine Mesylate 1 Mg Tablet PO 1 mg BID DONNA Administration Haloperidol 5 mg 06/03/20 12:51 06/03/20 13:04 Haloperidol 5 Mg Tablet PO 5 mg Q6H PRN Administration Psychosis Haloperidol 5 mg 06/04/20 09:30 06/05/20 08:39 Haloperidol 5 Mg Tablet PO 5 mg BID DONNA Administration Hydroxyzine HCl 25 mg 05/30/20 19:13 05/31/20 21:41 Hydroxyzine Hcl 25 Mg Tablet PO 25 mg BEDTIME PRN Administration Anxiety [place] Carbonate 450 mg 06/03/20 21:00 06/05/20 08:39 [place] Carbonate Er 450 Mg Tablet.Er PO 450 mg BID DONNA Administration Lorazepam 1 mg 06/03/20 12:51 06/03/20 13:04 Lorazepam 1 Mg Tablet PO 1 mg Q4H PRN Administration agitation [place] Hydroxide 30 ml 05/30/20 19:13 Milk Of Magnesia 30 Ml Oral.Susp PO DAILY PRN Constipation Quetiapine Fumarate 300 mg 05/31/20 21:00 06/04/20 20:12 Quetiapine Fumarate 300 Mg Tablet PO 300 mg BEDTIME DONNA Administration Quetiapine Fumarate 150 mg 06/03/20 11:51 06/04/20 17:15 Quetiapine Fumarate 50 Mg Tablet PO 150 mg Q4H PRN Administration anxiety/restlessness Allergies Allergies Allergy/AdvReac Type Severity Reaction Status Date / Time No Known Allergies Allergy Unverified 04/19/20 19:23 [No Known Allergies*] Assessment & Plan Assessment & Plan (1) Bipolar disorder: Qualifiers: Active/Remission status: currently active Current bipolar episode type: manic Current episode severity: severe Psychotic features: with psychotic features Qualified Code(s): F31.2 - Bipolar disorder, current episode manic severe with psychotic features Status: Acute Code(s): F31.9 - Bipolar disorder, unspecified Assessment and Plan: CT current plan Li level is therapeutic Obtain feedback from mother, after he visit CT close observation Anticipate DC 06/06 or 06/07 Greater than 50% of the session was spent on counseling and/or coordination of care Patient educated on: diagnosis and medication risk/benefits Guardian/Caregiver educated on: diagnosis and medication risk/benefits Informed Consent: further education needed Reason for contiued inpatient stay Substantial Risk for: rapid decompensation
[2020-06-05 18:00] VITALS: BP 124/79; PULSE 69; TEMP 36.5
[2020-06-05] MEDS: LORazepam 1 MG TABLET PO (18:31)
[2020-06-05] MEDS: QUEtiapine Fumarate 300 MG TABLET PO (20:36)
[2020-06-06 06:15] VITALS: BP 147/74; PULSE 77; RESP 16; TEMP 36.8; O2SAT 100
--- NOTE | 2020-06-06 09:18 | P.PNPSI_ITS ---
Subjective Subjective Date of Service: 06/06/20 Reason For Visit: psychosis Subjective Notes: Conditional Voluntary Interim History: Roberta has been overall more calm and less intrusive. She reports that she is feeling better overall. She has found the haldol very helpful. She is much more clear in her thinking and she has better insight into her illness and how ill she was when she got here. Her mother also feels that she is improving and would like to take her home soon. She is visiting at 11.30 am and will give feedback. Aim is for DC 06/07 Medication Compliance: Yes Side effects from medications: No Attending Groups: Yes Review of Systems Acute medical concerns: No Medical Review of Systems: unchanged Review of Systems Reports system reviewed and no additional complaints, except as documented and Reports as per HPI Mental Status Exam Mental Status Exam Narrative: Much calmer and more present Patient Appearance: Well Grooomed and Appropriate Patient Orientation: Person, Place and Time Level of Consciousness: Awake and Appropriate Patient Behavior: Appropriate, Cooperative and Good Eye Contact Mood Description: Constricted and Apprehensive Affect Description: Constricted and Apprehensive Patient Cognition Impaired: No Ability to Follow Directions: Fair Speech Pattern: Clear and Spontaneous Speech Memory Description: Remote Impaired Hallucinations: None Delusions: Not Present Thought Process: Slowed Thinking Thought Content: negative for Suicidal Ideation and negative for Homicidal Ideation Judgement: Fair Diagnostics Vital Signs (24Hr): Vital Signs - 24 hr 06/05/20 18:00 06/06/20 06:15 Temperature 97.7 F 98.3 F Pulse Rate 69 77 Respiratory Rate 16 Blood Pressure 124/79 147/74 H Pulse Oximetry 100 Body Mass Index 29.0 Labs Results: 05/30/20 09:17 05/30/20 09:17 Labs: Laboratory Results - last 48 hr 06/05/20 07:57 [place] 0.74 Medications Medications Current Medications Generic Name Dose Route Start Last Admin Trade Name Freq PRN Reason Stop Dose Admin Acetaminophen 650 mg 05/30/20 19:13 Acetaminophen 325 Mg Tablet PO Q6H PRN Headache/Pain Mild Scale (1-3) Al Hydroxide/Mg Hydroxide 30 ml 05/30/20 19:13 Magnesium Hydrox/Alum Hydrox 30 Ml Oral.Susp PO Q6H PRN Heartburn/Nausea Benztropine Mesylate 1 mg 06/03/20 12:51 06/03/20 13:04 Benztropine Mesylate 1 Mg Tablet PO 1 mg TID PRN Administration Extrapyramidal Effects Benztropine Mesylate 1 mg 06/04/20 09:30 06/05/20 20:35 Benztropine Mesylate 1 Mg Tablet PO 1 mg BID DONNA Administration Haloperidol 5 mg 06/03/20 12:51 06/03/20 13:04 Haloperidol 5 Mg Tablet PO 5 mg Q6H PRN Administration Psychosis Haloperidol 5 mg 06/04/20 09:30 06/05/20 20:36 Haloperidol 5 Mg Tablet PO 5 mg BID DONNA Administration Hydroxyzine HCl 25 mg 05/30/20 19:13 05/31/20 21:41 Hydroxyzine Hcl 25 Mg Tablet PO 25 mg BEDTIME PRN Administration Anxiety [place] Carbonate 450 mg 06/03/20 21:00 06/05/20 20:35 [place] Carbonate Er 450 Mg Tablet.Er PO 450 mg BID DONNA Administration Lorazepam 1 mg 06/03/20 12:51 06/05/20 18:31 Lorazepam 1 Mg Tablet PO 1 mg Q4H PRN Administration agitation Magnesium Hydroxide 30 ml 05/30/20 19:13 Milk Of Magnesia 30 Ml Oral.Susp PO DAILY PRN Constipation Quetiapine Fumarate 300 mg 05/31/20 21:00 06/05/20 20:36 Quetiapine Fumarate 300 Mg Tablet PO 300 mg BEDTIME DONNA Administration Quetiapine Fumarate 150 mg 06/03/20 11:51 06/04/20 17:15 Quetiapine Fumarate 50 Mg Tablet PO 150 mg Q4H PRN Administration anxiety/restlessness Allergies Allergies Allergy/AdvReac Type Severity Reaction Status Date / Time No Known Allergies Allergy Unverified 04/19/20 19:23 [No Known Allergies*] Assessment & Plan Assessment & Plan (1) Bipolar disorder: Qualifiers: Active/Remission status: currently active Current bipolar episode type: manic Current episode severity: severe Psychotic features: with psychotic features Qualified Code(s): F31.2 - Bipolar disorder, current episode manic severe with psychotic features Status: Acute Code(s): F31.9 - Bipolar disorder, unspecified Assessment and Plan: CT current plan Li level is therapeutic Obtain feedback from mother, after her visit Advance to 5 minute checks Anticipate DC 11/ Greater than 50% of the session was spent on counseling and/or coordination of care Patient educated on: diagnosis and medication risk/benefits Reason for contiued inpatient stay Substantial Risk for: rapid decompensation
[2020-06-06] MEDS: HaloperidoL 5 MG TABLET PO ×3 (10:03→21:26)
[2020-06-06] MEDS: Benztropine Mesylate 1 MG TABLET PO ×3 (10:03→21:26)
[2020-06-06] MEDS: Lithium Carbonate ER 450 MG TABLET.ER PO ×2 (10:03→21:26)
[2020-06-06] MEDS: LORazepam 1 MG TABLET PO ×2 (13:56→18:07)
[2020-06-06 17:35] VITALS: BP 143/84; PULSE 92; TEMP 36.6
[2020-06-06] MEDS: QUEtiapine Fumarate 300 MG TABLET PO (21:27)
[2020-06-07 06:15] VITALS: BP 149/87; PULSE 102; RESP 16; TEMP 36.2; O2SAT 99
[2020-06-07] MEDS: LORazepam 1 MG TABLET PO ×2 (06:27→12:21)
[2020-06-07 06:40] VITALS: BP 99/55; PULSE 84; RESP 18; TEMP 36.4
[2020-06-07] MEDS: Lithium Carbonate ER 450 MG TABLET.ER PO (09:06)
[2020-06-07] MEDS: HaloperidoL 5 MG TABLET PO (09:06)
[2020-06-07] MEDS: Benztropine Mesylate 1 MG TABLET PO (09:07)
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
== END 2020-06-07 14:30 | disposition home or self-care (01) | DRG 753 ==
LOC: HO.ED 19:11 → HO.PM5 19:22
PROVIDERS: Physician Assistant; Admitting Provider Psychiatry & Neurology Psychiatry; Emergency Provider Internal Medicine; Visit Provider Psychiatry & Neurology Psychiatry
DX: F31.2 Bipolar disorder, current episode manic severe with psychotic features (principal); U07.1 COVID-19; Z79.899 Other long term (current) drug therapy
CPT/HCPCS: 36415; 80053; 80178; 80307; 80320; 81001; 81025; 82248; 85025; 87635; 99232; 99284; 99285; J0515; J2060